=== PATIENT | male | born 1960 | race Caucasian/White ===

== ENCOUNTER 2021-04-08 05:56 | Day surgery (SDC) | payer MEDICAID ==
[2021-04-06 10:08] LABS: COVID AG,FIA SOURCE NASOPHARYNGEAL
[~2021-04-08] VITALS: Ht 175.3 cm; Wt 56.8 kg
[~2021-04-08 05:56] MED LIST: CETI-450 PO; DOCU-350 PO; FAMO20 PO; FLUT1BLS10 IH; MONT-35 PO; MORP60TA49 PO; POLY17PO47 PO; UMEC62.5 IH
[2021-04-08] MEDS ORDERED: LIDOCAINE 2% 30 ML JELLY TP ONE (05:57)
[2021-04-08] MEDS ORDERED: ALBUTEROL SULFATE 2.5 MG/0.5 ML NEB SOLUTION NEB ONE (05:57)
[2021-04-08] MEDS ORDERED: LIDOCAINE 4% 50 ML SOLUTION TP ONE (05:57)
[2021-04-08] MEDS ORDERED: BENZOCAINE 20% 50 MCG/SPRAY 57 GM TP ONE (05:57)
[2021-04-08] MEDS ORDERED: SODIUM CHLORIDE 0.9% 1,000 ML IV ONE (06:30)
[2021-04-08] MEDS ORDERED: SODIUM CHLORIDE 0.9% 1,000 ML ONE (06:48)
[2021-04-08] MEDS ORDERED: MIDAZOLAM HCL 2 MG/2 ML VIAL ONE (07:41)
[2021-04-08] MEDS ORDERED: FentaNYL CITRATE PF 100 MCG/2 ML VIAL ONE (07:41)
[2021-04-08] MEDS ORDERED: MethylPREDNISolone SOD SUCC 125 MG/2 ML VIAL ONE (09:29)
[2021-04-08] MEDS ORDERED: MethylPREDNISolone SOD SUCC 125 MG/2 ML VIAL IVP ONE (09:30)
[2021-04-08] MEDS ORDERED: OXYGEN THERAPY IH SCH (20:00)
== END 2021-04-08 11:35 | disposition home or self-care (01) ==
LOC: SURGERY 05:56
PROVIDERS: ATTEND Internal Medicine Critical Care Medicine
DX: J38.4 Edema of larynx (principal); B37.0 Candidal stomatitis; J43.9 Emphysema, unspecified; Z98.890 Other specified postprocedural states; Z79.899 Other long term (current) drug therapy
CPT/HCPCS: 31623; 31624; 71045; 87015; 87070; 87101; 87205; 87206; 87220; 87426; 88108; 88184; 88185; 88312; C9803; J2250; J2930; J3010; J7030; J7613; Z7610

== ENCOUNTER 2022-02-26 05:46 | Day surgery (SDC) | payer MEDICAID ==
[~2022-02-26] VITALS: Ht 175.3 cm; Wt 70.0 kg
[~2022-02-26 05:46] MED LIST changes: -DOCU-350 PO; +DOCU250C99 PO
[2022-02-26] MEDS ORDERED: BENZOCAINE 20% 50 MCG/SPRAY 57 GM TP ONE (05:47)
[2022-02-26] MEDS ORDERED: LIDOCAINE 4% 50 ML SOLUTION TP ONE (05:47)
[2022-02-26] MEDS ORDERED: LIDOCAINE 2% 30 ML JELLY TP ONE (05:47)
[2022-02-26] MEDS ORDERED: ALBUTEROL SULFATE 2.5 MG/0.5 ML NEB SOLUTION NEB ONE (05:47)
[2022-02-26] MEDS ORDERED: SODIUM CHLORIDE 0.9% 1,000 ML IV ONE (06:30)
[2022-02-26] MEDS ORDERED: SODIUM CHLORIDE 0.9% 1,000 ML ONE (06:43)
[2022-02-26 06:45] LABS: COVID AG,FIA SOURCE NASOPHARYNGEAL
[2022-02-26] MEDS ORDERED: ASPI-1444 PO (07:18)
[2022-02-26] MEDS ORDERED: MIDAZOLAM HCL 5 MG/ML VIAL ONE (07:19)
[2022-02-26] MEDS ORDERED: FentaNYL CITRATE PF 100 MCG/2 ML VIAL ONE (07:19)
[2022-02-26] MEDS ORDERED: ATOR40TA28 PO (07:19)
[2022-02-26] MEDS ORDERED: LISI-893 PO (07:20)
[2022-02-26] MEDS ORDERED: FERR325T27 PO (07:23)
[2022-02-26] MEDS ORDERED: FLUT15.812 NASAL (07:24)
[2022-02-26] MEDS ORDERED: PRED-729 PO (07:29)
[2022-02-26] MEDS ORDERED: DOXY75TA14 PO (07:30)
[2022-02-26] MEDS ORDERED: MethylPREDNISolone SOD SUCC 125 MG/2 ML VIAL IVP ONE ×2 (09:15→09:45)
[2022-02-26] MEDS ORDERED: MethylPREDNISolone SOD SUCC 125 MG/2 ML VIAL ONE (09:45)
[2022-02-26] MEDS ORDERED: OXYGEN THERAPY IH SCH ×2 (20:00)
== END 2022-02-26 10:55 | disposition home or self-care (01) ==
LOC: SURGERY 05:46
PROVIDERS: ATTEND Internal Medicine Critical Care Medicine
DX: J38.4 Edema of larynx (principal); B37.0 Candidal stomatitis; J44.9 Chronic obstructive pulmonary disease, unspecified; I10 Essential (primary) hypertension; Z72.89 Other problems related to lifestyle; Z87.891 Personal history of nicotine dependence; Z98.890 Other specified postprocedural states; Z88.6 Allergy status to analgesic agent; Z79.899 Other long term (current) drug therapy
CPT/HCPCS: 31623; 31624; 71045; 87015; 87070; 87101; 87206; 87220; 87426; 88112; 88184; 88185; 88312; C9803; J2250; J2930; J3010; J7030; J7613; Z7610